=== PATIENT | female | born 1950 | race Caucasian/White ===

== ENCOUNTER → 2020-07-08 | Outpatient (CLI) | payer MEDICARE | END | disposition home or self-care (01) | LOC: CFH 15:22 | PROVIDERS: ATTEND Family Medicine Sports Medicine | DX: M76.821 Posterior tibial tendinitis, right leg (principal); R22.41 Localized swelling, mass and lump, right lower limb ==

== ENCOUNTER → 2021-02-15 | Outpatient (CLI) | payer MEDICARE | END | disposition home or self-care (01) | LOC: CVU 09:26 | PROVIDERS: ATTEND Internal Medicine Cardiovascular Disease | DX: I08.2 Rheumatic disorders of both aortic and tricuspid valves (principal); I11.9 Hypertensive heart disease without heart failure | CPT/HCPCS: 93306 ==

== ENCOUNTER 2021-04-26 15:09 | Emergency (ER) | payer MEDICARE ==
[~2021-04-26] VITALS: Ht 160 cm; Wt 100.5 kg
--- NOTE | 2021-04-26 16:54 | NUR ---
TO RM 18 FROM [facility]. PT STATES THAT SHE HAS NOT HAD A BM SINCE MONDAY. PT STATES MUCOUS COMING FROM ANUS AND SHE HAS BEEN HAVING ABDOMINAL PAIN SINCE THIS MORNING
--- NOTE | 2021-04-26 17:36 | NUR ---
AMBULATED TO BATHROOM WITHOUT ASSISTANCE TO ATTEMPT TO GIVE URINE SAMPLE.
[2021-04-26 17:37] LABS: BASOPHILS % (AUTO) 1 % (0-1); EOSINOPHILS % (AUTO) 1 % (1-7); LYMPHOCYTES % (AUTO) 9 % (22-44); MEAN CORPUSCULAR HEMOGLOBIN 30.2 pg (27.0-34.8); MEAN PLATELET VOLUME 7.8 fL (7.4-10.4); MONOCYTES % (AUTO) 5 % (2-9); NEUTROPHILS % (AUTO) 86 % (42-75); PLATELET COUNT 266 x10^3/uL (130-400); RED BLOOD COUNT 4.73 x10^6/uL (3.82-5.3); RED CELL DISTRIBUTION WIDTH 13.8 % (9.6-15.2)
[2021-04-26 17:48] LABS: ALANINE AMINOTRANSFERASE 22 U/L (12-78); ALBUMIN 3.5 g/dL (3.4-5.0); ANION GAP 7 mmol/L (5-15); CALCIUM 8.9 mg/dL (8.5-10.1); CHLORIDE 108 mmol/L (98-107); CREATININE 0.71 mg/dL (0.55-1.02)
[2021-04-26 17:49] LABS: ALKALINE PHOSPHATASE 73 U/L (45-117); BILIRUBIN,TOTAL 0.5 mg/dL (0.2-1.0); TOTAL PROTEIN 7.4 g/dL (6.4-8.2)
--- NOTE | 2021-04-26 18:04 | NUR ---
PT HAD LIQUID STOOL AND SAMPLE OBTAINED ALONG WITH URINE SAMPLE. TO LAB FOR TESTING. PT CONTINUES TO HAVE WAVES OF ABDOMINAL PAIN THAT LASTS FOR A MINUTE AND THEN GOES AWAY.
[2021-04-26 18:05] VITALS: BP 158/77
[2021-04-26 18:50] LABS: MICROSCOPIC AUTO
[2021-04-26 19:17] LABS: CLOSTRIDIUM DIFFICILE ANTIGEN NEGATIVE; CLOSTRIDIUM DIFFICILE TOXIN NEGATIVE (Negative)
[2021-04-26] MEDS ORDERED: DICYCLOMINE 20 MG TABLET PO ONE (19:30)
[2021-04-26] MEDS ORDERED: ONDANSETRON ODT 4 MG PO ONE (19:30)
[2021-04-26] MEDS ORDERED: DICYCLOMINE 20 MG TABLET ONE (19:37)
[2021-04-26] MEDS ORDERED: ONDANSETRON ODT 4 MG ONE (19:37)
== END 2021-04-26 20:06 | disposition home or self-care (01) ==
LOC: ED 19:50
DX: R19.7 Diarrhea, unspecified (principal); R10.84 Generalized abdominal pain; R11.0 Nausea; I10 Essential (primary) hypertension; E78.5 Hyperlipidemia, unspecified; E03.9 Hypothyroidism, unspecified
CPT/HCPCS: 36415; 80053; 81001; 83690; 85025; 87086; 87324; 89055; 99283; Q0162

== ENCOUNTER 2021-04-28 07:51 | Emergency (ER) | payer MEDICARE ==
[~2021-04-28] VITALS: Ht 160 cm; Wt 100.5 kg
[2021-04-28] MEDS ORDERED: ONDANSETRON 2MG/ML, 2ML IVPush ONE (08:30)
[2021-04-28] MEDS ORDERED: MORPHINE SULFATE 4 MG/ML, 1ML ONE (08:30)
[2021-04-28] MEDS ORDERED: ONDANSETRON 2MG/ML, 2ML ONE (08:30)
[2021-04-28] MEDS ORDERED: MORPHINE SULFATE 4 MG/ML, 1ML IVPush PRN (08:30)
[2021-04-28] MEDS ORDERED: SODIUM CHLORIDE 0.9% 1,000ML IVBOLUS ONE (08:30)
[2021-04-28] MEDS ORDERED: FAMOTIDINE 20 MG/2 ML IVPush ONE (08:30)
[2021-04-28 08:37] LABS: BASOPHILS % (AUTO) 0 % (0-1); EOSINOPHILS % (AUTO) 1 % (1-7); LYMPHOCYTES % (AUTO) 9 % (22-44); MEAN CORPUSCULAR HEMOGLOBIN 30.1 pg (27.0-34.8); MEAN CORPUSCULAR HGB CONC 33.8 g/dL (32.4-35.8); MEAN PLATELET VOLUME 7.7 fL (7.4-10.4); MONOCYTES % (AUTO) 7 % (2-9); NEUTROPHILS % (AUTO) 82 % (42-75); PLATELET COUNT 253 x10^3/uL (130-400); RED BLOOD COUNT 4.52 x10^6/uL (3.82-5.3); RED CELL DISTRIBUTION WIDTH 13.6 % (9.6-15.2)
[2021-04-28] MEDS ORDERED: FAMOTIDINE 20 MG/2 ML ONE (08:43)
[2021-04-28 08:45] LABS: ALBUMIN 3.1 g/dL (3.4-5.0); ANION GAP 7 mmol/L (5-15); CALCIUM 8.7 mg/dL (8.5-10.1); CHLORIDE 106 mmol/L (98-107)
[2021-04-28 08:49] LABS: ALANINE AMINOTRANSFERASE 15 U/L (12-78); ALKALINE PHOSPHATASE 73 U/L (45-117); CREATININE 0.76 mg/dL (0.55-1.02); TOTAL PROTEIN 6.8 g/dL (6.4-8.2)
--- NOTE | 2021-04-28 08:57 | NUR ---
THIS IS A 71 YO F W/ C/O GENERAL ABD PAIN, CONSTIPATION X5 DAYS AND MUCUS STOOLS. PT SEEN HERE RECENTLY FOR SAME. PIV STARTED, LABS DRAWN, PT MEDICATED PER EMAR. COMMODE AT BEDSIDE PER PT REQUEST. EDUCATED ON USE OF CALL CANALES AND NEED FOR URINE SAMPLE. VSS, HELENN. AWAITING CT.
--- NOTE | 2021-04-28 08:58 | NUR ---
PT PLACED ON 2L NC FOR SAFETY S/P SPARE FIXER.
[2021-04-28 09:21] VITALS: BP 100/67
--- NOTE | 2021-04-28 09:23 | NUR ---
PT DECLINING TO ATTEMPT URINE SAMPLE AT THIS TIME. JAMILAHS, HAMZAH.
--- NOTE | 2021-04-28 09:29 | NUR ---
PT TO CT.
[2021-04-28] MEDS ORDERED: OMNIPAQUE 350 MG/ML, 100ML BOTTLE ONE (10:05)
--- NOTE | 2021-04-28 10:19 | NUR ---
AT BEDSIDE FOR RECHECK.
--- NOTE | 2021-04-28 10:32 | NUR ---
PT TRANSFERED TO [facility] TO ATTEMPT STOOL SAMPLE.
--- NOTE | 2021-04-28 10:50 | NUR ---
PT URINATED 500ML INTO HAT THAT WAS PLACED FOR STOOL COLLECTION. MINISCULE AMOUNT OF STOOL OBSERVED IN URINE, UNLIKELY AN EFFICIENT AMOUNT FOR TEST. NEW HAT PLACED AND PT EDUCATED ON STOOL SAMPLE COLLECTION.
[2021-04-28 11:17] LABS: MICROSCOPIC NOT IND
--- NOTE | 2021-04-28 12:16 | NUR ---
Patient given discharge instructions and they have confirmed that they understand the instructions. Patient ambulatory with steady gait.
== END 2021-04-28 12:18 | disposition home or self-care (01) ==
LOC: ED 07:57
DX: K59.00 Constipation, unspecified (principal); R10.84 Generalized abdominal pain; E78.5 Hyperlipidemia, unspecified; I10 Essential (primary) hypertension; E03.9 Hypothyroidism, unspecified
CPT/HCPCS: 36415; 74177; 80053; 81003; 83690; 85025; 96361; 96374; 96375; 99285; J2270; J2405; J7030; Q9967